=== PATIENT | female | born 1930 | race Caucasian/White ===

== ENCOUNTER 2020-08-12 12:54 | Outpatient (CLI) | payer MEDICARE ==
--- NOTE | 2020-08-12 13:43 | CT Report ---
PROCEDURE: HEAD WO INDICATIONS: DEMENTIA, URINARY INCONTINENCE TECHNIQUE: Noncontrast 4.5 mm thick angled axial sections acquired from the foramen magnum to the vertex. For r adiation dose reduction, the following was used: automated exposure control, adjustment of mA and/or kV according to patient size. COMPARISON: None. FINDINGS: Image quality: Excellent. CSF spaces: Basal cisterns are patent. Mild chronic bilateral subdural hygromas can be seen anterior ly. Ventricles are normal in size and shape. Brain: No midline shift. No intracranial masses or hemorrhage. Reyes-white matter interface is norm al. Skull and face: Calvarium and visualized facial bones are intact, without suspicious lesions. Sinuses: Visualized sinuses and mastoids are clear. IMPRESSION: No significant intracranial abnormality is seen. Age-appropriate brain parenchymal volume loss and chronic small vessel ischemic change can be seen. The lateral ventricles are not disproportionately prominent to the degree of generalized brain parenc hymal atrophy. Based upon these images, normal pressure hydrocephalus is not suspected. Mild bilateral subdural hygromas can be seen anteriorly. Reviewed by: Marcel Quintero MD on 08/12/2020 12:42 PM [facility] Approved by: Marcel Quintero MD on 08/12/2020 12:42 PM [facility] Station ID: [id number]
== END 2020-08-12 12:55 | disposition home or self-care (01) ==
LOC: DI 12:54
PROVIDERS: ATTEND Internal Medicine
DX: G31.9 Degenerative disease of nervous system, unspecified (principal); F02.80 Dementia in other diseases classified elsewhere, unspecified severity, without behavioral disturbance, psychotic disturbance, mood disturbance, and anxiety; R39.81 Functional urinary incontinence
CPT/HCPCS: 70450

== ENCOUNTER 2021-03-10 08:30 | Outpatient (CLI) | payer MEDICARE ==
--- NOTE | 2021-03-10 09:21 | XRAY Report ---
PROCEDURE: Chest 2 View X-Ray INDICATIONS: Dyspnea TECHNIQUE: 2 view(s) of the chest. COMPARISON: None. FINDINGS: Surgical changes and devices: Left chest wall cardiac pacing device. Lungs and pleura: No pleural effusions or pneumothorax. Increased interstitial markings in both lung s. Mediastinum: Mediastinal contours are normal. Heart size is normal. Bones and chest wall: No suspicious bony abnormalities. Soft tissues appear unremarkable. IMPRESSION: Increased interstitial markings in both lungs. These are potentially chronic representing an element of interstitial lung disease, versus acute representing [id number] pulmonary edema. Reviewed by: Fabian Lockett MD on 03/10/2021 9:20 AM PDT Approved by: Fabian Lockett MD on 03/10/2021 9:20 AM PDT Station ID: [id number]
== END 2021-03-10 08:31 | disposition home or self-care (01) ==
LOC: DI 08:30
PROVIDERS: ATTEND Internal Medicine
DX: R91.8 Other nonspecific abnormal finding of lung field (principal); N64.4 Mastodynia; R92.8 Other abnormal and inconclusive findings on diagnostic imaging of breast

== ENCOUNTER 2021-03-10 11:53 | Outpatient (CLI) | payer MEDICARE ==
--- NOTE | 2021-03-11 13:11 | Ultrasound Report ---
LIMITED ULTRASOUND OF LEFT BREAST: 03/10/2021 CLINICAL: Palpable left breast lump. Comparison is made to exams dated: 03/10/2021 mammogram - [facility], 06/11/2018 mamm ogram, and 09/15/2008 mammogram - [facility]. Real-time ultrasound of the left breast 12 o'clock region was performed. Reyes scale images of the r eal-time examination were reviewed. No significant abnormalities were seen sonographically in the left breast. The area of concern was i n close vicinity to patient's pacemaker device. No associated fluid collections or mass lesions. IMPRESSION: NEGATIVE There is no sonographic evidence of malignancy. There is no abnormality seen in the left breast to correspond with the area of clinical concern at 12 o'clock in the posterior depth, however, recommend clinical follow up for persistent or worsening s ymptoms, or development of any clinically suspicious findings. A 1 year screening mammogram is recommended. Findings and recommendations were conveyed to the patient during today's evaluation. This exam was interpreted at Station ID: [id number]. Electronically Signed By: Ashok Jarrell M.D. aty/:03/10/2021 15:01:16 Ultrasound BI-RADS: 1 Negative BI-RADS CATEGORY: (1) - 1 RECOMMENDATION: (ANNUAL) - Recommend routine annual screening mammography. [id number] 1 year screening LATERALITY: (B)
--- NOTE | 2021-03-11 13:11 | Mammography Report ---
BILATERAL DIGITAL DIAGNOSTIC MAMMOGRAM 3D/2D: 03/10/2021 CLINICAL: Diffuse left breast pain. Comparison is made to exams dated: 06/11/2018 mammogram and 09/15/2008 mammogram - [facility]. The tissue of both breasts is heterogeneously dense. This may lower the sensitivity of mammography. No significant masses, calcifications, or other findings are seen in either breast. IMPRESSION: INCOMPLETE: NEEDS ADDITIONAL IMAGING EVALUATION There is no abnormality seen in the left breast to correspond with the area of clinical concern in th e posterior depth in the upper aspect near the pacemaker, however, an ultrasound is recommended for f urther evaluation and is scheduled to immediately follow this examination. This exam was interpreted at Station ID: [id number]. NOTE: For mammograms, a report in lay terms will be sent to the patient. Approximately 15% of breast malignancies will not be visualized mammographically. In the management of a palpable breast mass, a negative mammogram must not discourage biopsy of a clinically suspicious lesion. Electronically Signed By: Ashok Jarrell M.D. aty/:03/10/2021 13:49:59 ACR BI-RADS Category 0: Incomplete 3340F PARENCHYMAL PATTERN: (D) - The breast(s) demonstrate(s) heterogeneously dense fibroglandular parniteshy ma. BI-RADS CATEGORY: (0) - 0 Ultrasound [id number] Immediate follow-up LATERALITY: (L)
== END 2021-03-10 11:54 | disposition home or self-care (01) ==
LOC: DI 11:53
PROVIDERS: ATTEND Internal Medicine
DX: N64.4 Mastodynia (principal); R92.8 Other abnormal and inconclusive findings on diagnostic imaging of breast

== ENCOUNTER 2021-06-21 10:26 | Emergency (ER) | payer MEDICARE ==
[2021-06-21 11:02] LABS: BASOPHILS % (AUTO) 0.4 %; EOSINOPHILS # (AUTO) 0.1 10^3/uL (0.0-0.7); EOSINOPHILS % (AUTO) 1.1 %; HCT - HEMATOCRIT 41.1 % (37.0-47.0); HGB - HEMOGLOBIN 12.8 g/dL (12.0-16.0); LYMPHOCYTES # (AUTO) 1.1 10^3/uL (1.5-3.5); LYMPHOCYTES % (AUTO) 14.7 %; MEAN CORPUSCULAR HEMOGLOBIN 29.3 pg (27.0-31.0); MEAN CORPUSCULAR HGB CONC 31.1 g/dL (32.0-36.0); MEAN CORPUSCULAR VOLUME 94.1 fL (81.0-99.0); MEAN PLATELET VOLUME 12.6 fL (7.9-10.8); MONOCYTES # (AUTO) 0.6 10^3/uL (0.0-1.0); MONOCYTES % (AUTO) 8.5 %; NEUTROPHILS # (AUTO) 5.5 10^3/uL (1.5-6.6); PLT - PLATELET COUNT 142 10^3/uL (130-450); RED BLOOD COUNT 4.37 10^6/uL (4.20-5.40); RED CELL DISTRIBUTION WIDTH 13.2 % (12.0-15.0); WHITE BLOOD COUNT 7.4 x10^3/uL (4.8-10.8)
--- NOTE | 2021-06-21 11:20 | ED Physician Documentation ---
PD HPI NVD - Stated complaint Stated Complaint: N/V - Chief complaint Chief Complaint: Cardiac - History obtained from History obtained from: Patient - History of Present Illness Timing - onset: How many days ago (3-4 days of abd cramping pains, some soft stools without blood nor melena, and nausea with vomiting several times daily. No abd distension, but does have feeling of lower fullness. Also notes dyspnea and some lightheaded. Has had less PO intake for few days due to abd symptoms.) Timing - duration: Days (4) Timing - details: Gradual onset, Still present, Waxing and waning Associated symptoms: Abdominal pain, Loss of appetite. No: Fever, Hematemesis, Near syncope / syncope, Dysuria Contributing factors: No: Sick contact, Bad food, Recent antibiotics Improved by: Laying still. No: BM Worsened by: Eating Similar symptoms before: Has not had sx before Review of Systems Constitutional: denies: Fever, Chills, Myalgias Nose: denies: Rhinorrhea / runny nose, Congestion Throat: denies: Sore throat Cardiac: reports: Chest pain / pressure (tightness at times), Pedal edema. denies: Calf pain Respiratory: reports: Dyspnea. denies: Cough, Wheezing GI: reports: Abdominal Pain, Nausea, Vomiting, Diarrhea (soft stools at times the past couple days. Small amounts. Not watery nor voluminous.). denies: Constipation : denies: Dysuria, Frequency Skin: denies: Rash, Lesions Musculoskeletal: reports: Extremity swelling (chronic mild both legs.) Neurologic: reports: Generalized weakness. denies: Focal weakness, Numbness PD PAST MEDICAL HISTORY - Past Medical History Cardiovascular: Hypertension, Arrhythmia (with pacemaker placed due to slow heart rate; no history of ID/CAD. ) Neuro: None Endocrine/Autoimmune: None GI: Diverticulitis : None - Present Medications Home Medications: Ambulatory Orders Medication Instructions Recorded Confirmed Amox/Clav 875/125 [Augmentin] 1 each PO Q12H #10 tablet 06/21/21 Docusate Sodium 100Mg Capsule 100 mg PO DAILY #10 cap 06/21/21 [Colace 100Mg Capsule] Fluticasone [Flonase] 2 spray IN DAILY 06/21/21 06/21/21 Labetalol HCl 200 mg PO BID 06/21/21 06/21/21 Levothyroxine Sodium [Levoxyl] 150 mcg PO DAILY 06/21/21 06/21/21 Lovastatin 20 mg PO DAILY 06/21/21 06/21/21 Naproxen 500 mg PO BID #14 tab 06/21/21 Ondansetron Odt [Zofran] 4 mg TL Q6H PRN #10 tablet 06/21/21 Oxybutynin Chloride [Ditropan Xl] 10 mg PO DAILY 06/21/21 06/21/21 Sertraline HCl 100 mg PO DAILY 06/21/21 06/21/21 - Allergies Allergies/Adverse Reactions: Allergies Allergy/AdvReac Type Severity Reaction Status Date / Time bisoprolol Allergy Unknown Verified 06/21/21 10:51 codeine Allergy Unknown Verified 06/21/21 10:51 lactose Allergy Unknown Verified 06/21/21 10:51 morphine Allergy Unknown Verified 06/21/21 10:51 niacin Allergy Unknown Verified 06/21/21 10:51 [From Niaspan Extended-Release] Sulfa (Sulfonamide Allergy Unknown Verified 06/21/21 10:51 Antibiotics) tetanus and diphtheria Allergy Unknown Verified 06/21/21 10:51 toxoids tramadol Allergy Unknown Verified 06/21/21 10:51 valacyclovir [From Valtrex] Allergy Unknown Verified 06/21/21 10:51 PD ED PE NORMAL - Vitals Vital signs reviewed: Yes - General General: Alert and oriented X 3, No acute distress, Well developed/nourished - HEENT HEENT: Moist mucous membranes, Pharynx benign - Neck Neck: Supple, no meningeal sign, No adenopathy - Cardiac Cardiac: RRR, No murmur - Respiratory Respiratory: Clear bilaterally, Other (pacemaker left chest wall without signs of infection/tenderness. ) - Abdomen Abdomen: Soft, Non distended, No organomegaly, Other (soft left abd wall ventral hernia without firmness nor tenderness. Bowel sounds decreased. Tender mid to lower abd without guarding nor percussion tender. ) - Rectal Rectal: Deferred - Back Back: No CVA TTP - Derm Derm: Normal color, Warm and dry - Extremities Extremities: No tenderness to palpate, Normal ROM s pain, No calf tenderness / cord, Other (minimal edema in ankles. Not tender. ) - Neuro Neuro: Alert and oriented X 3, No motor deficit, Normal speech - Psych Psych: Normal mood, Normal affect Results - Vitals Vitals: Vital Signs - 24 hr 06/21/21 06/21/21 06/21/21 10:40 11:09 11:35 Temperature 36.7 C Heart Rate 59 L 70 113 H Respiratory 25 H 14 16 Rate Blood Pressure 181/79 H 191/71 H 198/82 H O2 Saturation 94 96 96 06/21/21 06/21/21 06/21/21 12:00 12:30 13:00 Temperature 36.5 C Heart Rate 63 68 60 Respiratory 20 16 18 Rate Blood Pressure 180/60 H 194/77 H 160/100 H O2 Saturation 98 97 95 06/21/21 06/21/21 13:30 14:00 Temperature Heart Rate 64 62 Respiratory 20 18 Rate Blood Pressure 130/100 H 149/74 H O2 Saturation 95 96 Oxygen O2 Source Room air - EKG (time done) at triage Rhythm: NSR [place]: Normal Intervals: Normal ME QRS: Normal Ischemia: Normal ST segments. No: ST elevation c/w ischemia, ST depression - Labs Labs: Laboratory Tests 06/21/21 06/21/21 06/21/21 10:55 10:55 10:55 WBC 7.4 RBC 4.37 Hgb 12.8 Hct 41.1 MCV 94.1 MCH 29.3 MCHC 31.1 L RDW 13.2 Plt Count 142 MPV 12.6 H Neut # (Auto) 5.5 Lymph # (Auto) 1.1 L [place] # (Auto) 0.6 Eos # (Auto) 0.1 Baso # (Auto) 0.0 Absolute Nucleated RBC 0.00 Nucleated RBC % 0.0 Sodium 144 Potassium 4.5 Chloride 106 Carbon Dioxide 28 Anion Gap 10.0 BUN 11 Creatinine 1.1 H Estimated GFR (MDRD) 47 L Glucose 104 H Calcium 9.0 Total Bilirubin 0.9 AST 16 ALT 15 Alkaline Phosphatase 56 Troponin I High Sens 6.8 Total Protein 6.7 Albumin 4.2 Globulin 2.5 Albumin/Globulin Ratio 1.7 Lipase 54 H - Rads (name of study) abd/pelvic CT Radiology: Prelim report reviewed (minimal pelvic ascites. significant sigmoid diverticulosis; cannot exclude diverticulitis. ), See rad report chest Radiology: Prelim report reviewed (no acute process), See rad report PD MEDICAL DECISION MAKING - ED course Complexity details: considered differential (seems abd symptoms of cramping lower pain, soft stool in small amount, and episodic vomiting. Does not seem SBO but consider. Also consider diverticulitis, UTI, gastritis. ), d/w patient Departure - Departure Disposition: 01 Home, Self Care Clinical Impression: Diverticulitis Abdominal pain Qualifiers: Abdominal location: generalized Qualified Code(s): R10.84 - Generalized a bdominal pain Nausea and vomiting Qualifiers: Vomiting type: unspecified Vomiting Intractability: non-intractable Qualified Code(s): R11.2 - Nausea with vomiting, unspecified Condition: Stable Record reviewed to determine appropriate education?: Yes Instructions: ED Diverticulitis, ED Nausea Vomiting Follow-Up: Lakeisha Jeffery MD [Primary Care Provider] - Prescriptions: Amox/Clav 875/125 [Augmentin] 1 each PO Q12H #10 tablet Docusate Sodium 100Mg Capsule [Colace 100Mg Capsule] 100 mg PO DAILY #10 cap Naproxen 500 mg PO BID #14 tab Ondansetron Odt [Zofran] 4 mg TL Q6H PRN #10 tablet PRN Reason: Nausea / Vomiting Comments: Stay well hydrated. Usual medications. Your blood tests and CT scan do not show significant abnormalities. The CT report does state some inflammation in the lower colon area with lots of diverticula so consistent with likely early diverticulitis. There is a moderate amount of stool still in areas of the colon. Stay well- hydrated. Use docusate stool softener daily for the next several days to week. Anti-inflammatory naproxen twice daily with food for a week. Augmentin antibiotic twice daily for 5 days. It I would anticipate improvement over the next several days. Add ondansetron if needed for nausea. Follow-up with your primary care or return here if not improving or worse symptoms. Your prescriptions were transmitted to [facility] pharmacy. Discharge Date/Time: 06/21/21 14:30
--- NOTE | 2021-06-21 11:22 | XRAY Report ---
PROCEDURE: Chest 1 View X-Ray INDICATIONS: Chest pain TECHNIQUE: One view of the chest was acquired. COMPARISON: 03/10/2021 FINDINGS: Surgical changes and devices: Left-sided cardiac pacer device is unchanged in positioning. Lungs and pleura: Minimal, chronic appearing diffuse interstitial prominence. Stable linear scarring versus subsegmental atelectasis of the peripheral right midlung zone. No acute air space opacities s een. No pleural effusions or pneumothorax. Mediastinum: Mediastinal contours appear stable. Heart size is normal. Bones and chest wall: No suspicious bony lesions. Overlying soft tissues appear unremarkable. IMPRESSION: Minimal, chronic-appearing diffuse interstitial prominence likely representing sequela of interstitia l lung disease. No acute air space opacities identified. Reviewed by: Ashok Jarrell MD on 06/21/2021 11:21 AM PST Approved by: Ashok Jarrell MD on 06/21/2021 11:21 AM PST Station ID: [id number]
[2021-06-21 11:26] LABS: ALBUMIN 4.2 g/dL (3.2-5.5); ALBUMIN/GLOBULIN RATIO 1.7 (1.0-2.2); BILIRUBIN,TOTAL 0.9 mg/dL (0.2-1.0); CREATININE 1.1 mg/dL (0.4-1.0); POTASSIUM 4.5 mmol/L (3.5-5.0); TOTAL PROTEIN 6.7 g/dL (6.7-8.2)
[2021-06-21] MEDS ORDERED: SODIUM CHLORIDE 0.9% 1,000 ML IV STA (12:36)
[2021-06-21] MEDS ORDERED: ONDANSETRON 4 MG/2 ML VIAL IVP STA (12:37)
[2021-06-21] MEDS ORDERED: FAMOTIDINE 20 MG/2 ML VIAL IVP STA (12:37)
[2021-06-21] MEDS ORDERED: IOVERSOL 320 100 ML VIAL IVP ONE ×2 (12:49→13:07)
--- NOTE | 2021-06-21 13:39 | CT Report ---
PROCEDURE: Abdomen/Pelvis W INDICATIONS: upper to mid abd pain for days CONTRAST: IV CONTRAST: Optiray 320 ml: 100 PO CONTRAST: *NO PO CONTRAST TECHNIQUE: After the administration of intravenous contrast, 5 mm thick sections acquired from the diaphragms to the symphysis. 5 mm thick coronal and sagittal reformats were acquired. For radiation dose reducti on, the following was used: automated exposure control, adjustment of mA and/or kV according to dc ent size. COMPARISON: None FINDINGS: Image quality: Excellent. ABDOMEN: Lung bases: Lung bases are clear. Heart size is normal. Pacemaker. Solid organs: Liver and spleen are normal in size and enhancement. Gallbladder is surgically absent . Biliary system is diffusely dilated, within normal limits postcholecystectomy.. Pancreas enhances normally. No adrenal nodules. Kidneys demonstrate normal size and enhancement, without hydronephro sis. Peritoneum and bowel: Extensive sigmoid diverticulosis. Cannot exclude diverticulitis. There is a sma ll amount of subjacent free fluid deep in the pelvis. Nodes and vessels: No retroperitoneal or mesenteric adenopathy by size criteria. Aorta and inferior vena cava are normal in size. Miscellaneous: No ventral hernias. PELVIS: Genitourinary: Bladder wall thickness is normal. Miscellaneous: No inguinal hernias or adenopathy. Bones: No suspicious bony lesions. No vertebral body compression fractures. Severe lumbar degenera tive change. Anterolisthesis of L4 on L5 with canal stenosis. Total right hip arthroplasty. Severe le ft hip degenerative change. IMPRESSION: 1. Extensive sigmoid diverticulosis. Cannot exclude diverticulitis. Minimal subjacent pelvic ascites. 2. Remote cholecystectomy. 3. Biliary ductal dilatation, within normal limits postcholecystectomy. 4. Canal stenosis at L4-L5. Reviewed by: Jacques Garcia MD on 06/21/2021 1:38 PM PST Approved by: Jacques Garcia MD on 06/21/2021 1:38 PM PST Station ID: [id number]
[2021-06-21] MEDS ORDERED: KETOROLAC 30 MG/ML VIAL IVP STA (13:54)
[2021-06-21] MEDS ORDERED: cefTRIAXone 1 GM VIAL IVP STA (13:54)
[2021-06-21 14:07] VITALS: BP 149/74
== END 2021-06-21 14:30 | disposition home or self-care (01) ==
LOC: ED 10:26
DX: K57.32 Diverticulitis of large intestine without perforation or abscess without bleeding (principal)
CPT/HCPCS: 36415; 71045; 74177; 80053; 83690; 84484; 85025; 93005; 96374; 96375; 99284; 99285; Q9967

== ENCOUNTER 2021-08-09 08:00 | Outpatient (CLI) | payer MEDICARE | END 2021-08-09 23:59 | LOC: LAB.R 08:00 | PROVIDERS: ATTEND Internal Medicine | DX: R05.1 Acute cough (principal); Z20.822 Contact with and (suspected) exposure to COVID-19 ==

== ENCOUNTER 2021-08-09 14:44 | Outpatient (CLI) | payer MEDICARE ==
--- NOTE | 2021-08-09 17:56 | XRAY Report ---
PROCEDURE: Chest 2 View X-Ray INDICATIONS: ACUTE COUGH TECHNIQUE: 2 view(s) of the chest. COMPARISON: 06/21/2021 and 03/10/2021. FINDINGS: Surgical changes and devices: Left-sided cardiac pacer device is unchanged in positioning.. Lungs and pleura: Interval increase in diffuse interstitial prominence with suggestion of minimal vas cular congestion. Mild blunting of the bilateral costophrenic angles likely representing small bilate ral pleural effusions. No focal consolidations. No pneumothorax. Streaky bibasilar opacities not sign ificantly changed. Mediastinum: Mediastinal contours are stable. Heart size is mildly enlarged. Bones and chest wall: No suspicious bony abnormalities. Soft tissues appear unremarkable. IMPRESSION: Interval increase in interstitial prominence and new small bilateral pleural effusions. Persistent st reaky bibasilar opacities. No focal consolidation seen. Mild cardiomegaly. Overall, findings may repr esent early/mild pulmonary edema versus possible infectious/inflammatory etiology. No focal consolida tion seen. Recommend clinical correlation. Recommend follow-up chest radiograph 4-6 weeks after treatment to document return to baseline examina tion. Reviewed by: Ashok Jarrell MD on 08/09/2021 5:54 PM PST Approved by: Ashok Jarrell MD on 08/09/2021 5:54 PM PST Station ID: [id number]
== END 2021-08-09 14:45 | disposition home or self-care (01) ==
LOC: DI 14:44
PROVIDERS: ATTEND Internal Medicine
DX: R05.1 Acute cough (principal); J90 Pleural effusion, not elsewhere classified; I51.7 Cardiomegaly